=== PATIENT | female | born 2000 | race Two or more races ===

== ENCOUNTER 2020-10-10 22:48 | Emergency (ER) | payer OTHER ==
[~2020-10-10] VITALS: Ht 165.1 cm; Wt 77.1 kg
[2020-10-11 00:54] VITALS: BP 120/72
== END 2020-10-11 01:58 | disposition home or self-care (01) ==
LOC: ER 22:50
DX: S09.8XXA Other specified injuries of head, initial encounter (principal); W20.8XXA Other cause of strike by thrown, projected or falling object, initial encounter; Y93.89 Activity, other specified; Y92.89 Other specified places as the place of occurrence of the external cause; Y99.8 Other external cause status
CPT/HCPCS: 70450